=== PATIENT | male | born 1940 | race Two or more races ===

== ENCOUNTER 2020-10-20 07:24 | Outpatient (CLI) | payer OTHER | END 2020-10-20 16:37 | disposition home or self-care (01) | LOC: NUCLEAR 07:24 | PROVIDERS: ATTEND Internal Medicine Cardiovascular Disease | DX: I25.10 Atherosclerotic heart disease of native coronary artery without angina pectoris (principal); I20.9 Angina pectoris, unspecified | CPT/HCPCS: 78452; 93017; A9500 ==